=== PATIENT | female | born 1995 | race African-American/Black ===

== ENCOUNTER 2020-06-14 03:12 | Emergency (ER) | payer OTHER ==
[~2020-06-14] VITALS: Ht 160 cm; Wt 72.7 kg
[2020-06-14 03:19] VITALS: BP 126/73
[2020-06-14 03:41] LABS: BILIRUBIN,URINE NEGATIVE (NEG); CLARITY,URINE CLEAR; COLOR,URINE YELLOW; NITRITE,URINE NEGATIVE (NEG); PH,URINE 6.5 (<5.0-8.0); PROTEIN,URINE 100 mg/dL (NEG-TRACE)
[2020-06-14 04:04] LABS: BACTERIA,URINE FEW /HPF (0-FEW)
[2020-06-14] MEDS ORDERED: PHEN100T82 PO (04:14)
--- NOTE | 2020-06-14 04:23 | PHYS DOC ---
Past Medical History Past Medical History: No Pertinent History Past Surgical History: No Surgical History Smoking Status: Current Every Day Smoker Alcohol Use: Occasionally Adult General Chief Complaint Chief Complaint: PAIN ON URINATION HPI HPI Patient is a 24 year old female complaining of new onset of genitourinary discomfort. Patient states that approximate 5 days ago she was diagnosed with chlamydia after having unprotected intercourse with a new partner. Patient states that she was given a dose of doxycycline was given a course of it but did not finish that. Patient states that she has been having ongoing sensation of dysuria and frequent urination. Denies any recent fever, chills, nausea, vomit ing, dizziness or lightheadedness. Review of Systems Review of Systems Constitutional: Denies fever or chills [] Eyes: Denies change in visual acuity, redness, or eye pain [] HENT: Denies nasal congestion or sore throat [] Respiratory: Denies cough or shortness of breath [] Cardiovascular: No additional information not addressed in HPI [] GI: Denies abdominal pain, nausea, vomiting, bloody stools or diarrhea [] : Denies dysuria or hematuria [] Musculoskeletal: Denies back pain or joint pain [] Integument: Denies rash or skin lesions [] Neurologic: Denies headache, focal weakness or sensory changes [] Endocrine: Denies polyuria or polydipsia [] All other systems were reviewed and found to be within normal limits, except as documented in this note. Allergies Allergies Allergies Coded Allergies Type Severity Reaction Last Updated Verified No Known Drug Allergies 06/14/20 No Physical Exam Physical Exam Constitutional: Well developed, well nourished, no acute distress, non-toxic appearance. [] HENT: Normocephalic, atraumatic, bilateral external ears normal, oropharynx moist, no oral exudates, nose normal. [] Eyes: PERRLA, EOMI, conjunctiva normal, no discharge. [] Neck: Normal range of motion, no tenderness, supple, no stridor. [] Cardiovascular:Heart rate regular rhythm, no murmur [] Lungs & Thorax: Bilateral breath sounds clear to auscultation [] Abdomen: Bowel sounds normal, soft, no tenderness, no masses, no pulsatile masses. [] Skin: Warm, dry, no erythema, no rash. [] Back: No tenderness, no CVA tenderness. [] Extremities: No tenderness, no cyanosis, no clubbing, ROM intact, no edema. [] Neurologic: Alert and oriented X 3, normal motor function, normal sensory func tion, no focal deficits noted. [] Psychologic: Affect normal, judgement normal, mood normal. [] Current Patient Data Vital Signs Vital Signs Date Time Temp Pulse Resp B/P (MAP) Pulse Ox O2 Delivery O2 Flow Rate FiO2 06/14/20 03:19 97.5 63 18 126/73 (90) 99 Room Air 97.5 Lab Values Laboratory Tests Test 06/14/20 03:32 Urine Collection Type Unknown Urine Color Yellow Urine Clarity Clear Urine pH 6.5 (<5.0-8.0) Urine Specific Grant >=1.030 (1.000-1.030) Urine Protein 100 mg/dL (NEG-TRACE) Urine Glucose (UA) Negative mg/dL (NEG) Urine Ketones (Stick) Negative mg/dL (NEG) Urine Blood Negative (NEG) Urine Nitrite Negative (NEG) Urine Bilirubin Negative (NEG) Urine Urobilinogen Dipstick 1.0 mg/dL (0.2 mg/dL) Urine Leukocyte Esterase Negative (NEG) Urine RBC 6-10 /HPF (0-2) Urine WBC 5-10 /HPF (0-4) Urine Squamous Epithelial Cells Many /LPF Urine Bacteria Few /HPF (0-FEW) Urine Mucus Mod /LPF EKG EKG [] Radiology/Procedures Radiology/Procedures [] Course & Med Decision Making Course & Med Decision Making Pertinent Labs and Imaging studies reviewed. (See chart for details) 24-year-old female presenting with vaginal discomfort and dysuria likely secondary to mild cervicitis and possible urinary tract infection. Urinalysis was obtained she is on demonstrating strong evidence of pain. I counseled patient to finish her course of doxycycline prescribed Pyridium to help with her symptoms Dragon Disclaimer Dragon Disclaimer This electronic medical record was generated, in whole or in part, using a voice recognition dictation system. Departure Departure Impression: Primary Impression: UTI (urinary tract infection) Disposition: 01 DC HOME SELF CARE/HOMELESS Condition: GOOD Referrals: NO PCP (PCP) Patient Instructions: Urinary Tract Infection Additional Instructions: EMERGENCY DEPARTMENT GENERAL DISCHARGE INSTRUCTIONS Thank you for coming to [facility] Emergency Department (ED) today and trusting us with you care. We trust that you had a positive experience in our Emergency Department. If you wish to speak to the department management, you may call the Director at [phone]. YOUR FOLLOW UP INSTRUCTIONS ARE FOLLOWS: 1. Do you have a private Doctor? If you do not have a private doctor, please ask for a resource list of physicians or clinics that may be able to assist you with follow up care. 2. The Emergency Physicain has interpreted your x-rays. The X-Ray specialist will also review them. If there is a change in the findings, you will be notified in 48 hours when at all possible. 3. A lab test or culture has been done, your results will be reviewed and you will be notified if you need a change in treatment. ADDITIONAL INSTRUCTIONS AND INFORMATION: 1. Your care today has been supervised by a physician who is specially trained in emergency care. Many problems require more than one evaluation for a complete diagnosis and treatment. We recommend that you schedule your follow up appointment as recommended to ensure complete treatment of you illness or injury. If you are unable to obtain follow up care and continue to have a problem, or if your condition worsens, we recommend that you return to the ED. 2. We are not able to safely determine your condition over the phone nor are we able to give sound medical advice over the phone. For these safety reasons, if you call for medical advice we will ask you to come to the ED for further evaluation. 3. If you have any questions regarding these discharge instructions please call the ED at [phone]. SAFETY INFORMATION: In the interest of safety, wellness, and injury prevention; we encourage you to wear your sealbelt, if you smoke; quite smoking, and we encourage family to use a pro tective helmet for bicycling and other sporting events that present an increased risk for head injury. IF YOUR SYMPTOMS WORSEN OR NEW SYMPTOMS DEVELOP, OR YOU HAVE CONCERNS ABOUT YOUR CONDITION; OR IF YOUR CONDITION WORSENS WHILE YOU ARE WAITING FOR YOUR FOLLOW UP APPOINTMENT; EITHER CONTACT YOUR PRIMARY CARE DOCTOR, THE PHYSICIAN WHOSE NAME AND NUMBER YOU WERE GIVEN, OR RETURN TO THE ED IMMEDIATELY. Scripts Phenazopyridine Hcl (PYRIDIUM) 100 Mg Tablet 1 TAB PO TID for urinary discomfort for 2 Days, #6 TAB 0 Refills Prov: VIRGIE KRUSE MD 06/14/20 VIRGIE KRUSE MD Jun 14, 2020 04:23
== END 2020-06-14 04:43 | disposition home or self-care (01) ==
LOC: ER 03:12
DX: N39.0 Urinary tract infection, site not specified (principal)
CPT/HCPCS: 81001; 99283

== ENCOUNTER 2020-06-29 16:47 | Emergency (ER) | payer OTHER ==
[~2020-06-29] VITALS: Ht 160 cm; Wt 73.0 kg
[~2020-06-29 16:47] MED LIST: PHEN100T82 PO
[2020-06-29 17:30] VITALS: BP 110/50
--- NOTE | 2020-06-29 17:57 | PHYS DOC ---
Past Medical History Past Medical History: No Pertinent History Past Surgical History: No Surgical History Smoking Status: Current Every Day Smoker Alcohol Use: Occasionally General Adult EDM: Chief Complaint: SEXUALLY TRANSMITTED DISEASE HPI: HPI: Patient is a 24 year old female who presents with has sex with a partner that was exposed to chlamydia and tested positive for chlamydia. She states that she has no vaginal discharge but there is a slight smell. She is a past history of a smoker. Patient denies vaginal itching, vaginal discharge, abdominal pain, nausea, vomiting, diarrhea, fever, back pain, urinary symptoms, chest pain, shortness of breath. Patient denies any pain at this time. Review of Systems: Review of Systems: Constitutional: Denies fever or chills. [] Eyes: Denies change in visual acuity. [] HENT: Denies nasal congestion or sore throat. [] Respiratory: Denies cough or shortness of breath. [] Cardiovascular: Denies chest pain or edema. [] GI: Denies abdominal pain, nausea, vomiting, bloody stools or diarrhea. [] : Denies dysuria. + Exposure to chlamydia, + odorous vaginal area [] Musculoskeletal: Denies back pain or joint pain. [] Integument: Denies rash. [] Neurologic: Denies headache, focal weakness or sensory changes. [] Endocrine: Denies polyuria or polydipsia. [] Lymphatic: Denies swollen glands. [] Psychiatric: Denies depression or anxiety. [] Heart Score: Risk Factors: Risk Factors: DM, Current or recent (<one month) smoker, HTN, HLP, family history of CAD, obesity. Risk Scores: Score 0 - 3: 2.5% MACE over next 6 weeks - Discharge Home Score 4 - 6: 20.3% MACE over next 6 weeks - Admit for Clinical Observation Score 7 - 10: 72.7% MACE over next 6 weeks - Early Invasive Strategies Allergies: Allergies: Allergies Coded Allergies Type Severity Reaction Last Updated Verified No Known Drug Allergies 06/14/20 No Physical Exam: PE: Constitutional: Well developed, well nourished, no acute distress, non-toxic appearance. [] HENT: Normocephalic, atraumatic, bilateral external ears normal, oropharynx moist, no oral exudates, nose normal. [] Eyes: PERRLA, EOMI, conjunctiva normal, no discharge. [] Neck: Normal range of motion, no tenderness, supple, no stridor. [] Cardiovascular:Heart rate regular rhythm, no murmur [] Lungs & Thorax: Bilateral breath sounds clear to auscultation [] Abdomen: Bowel sounds normal, soft, no tenderness, no masses, no pulsatile masses. [] Skin: Warm, dry, no erythema, no rash. [] Back: No tenderness, no CVA tenderness. [] Extremities: No tenderness, no cyanosis, no clubbing, ROM intact, no edema. [] Neurologic: Alert and oriented X 3, normal motor function, normal sensory function, no focal deficits noted. [] Psychologic: Affect normal, judgement normal, mood normal. Normal physical exam [] EKG: EKG: [] Radiology/Procedures: Radiology/Procedures: [] Course & Med Decision Making: Course & Med Decision Making Pertinent Labs and Imaging studies reviewed. (See chart for details) See HPI. Alert and oriented x4. Ambulatory with steady gait. Abdomen is soft and nontender. Skin pink warm and dry. Afebrile. No CVA tenderness. Patient is treated with Rocephin and azithromycin. Pelvic Exam: Electronic Health Records Specialist present Abdomen: Nontender External Genitalia: Normal Skin Speculum: Normal vaginal mucosa, normal cervical discharge Bimanual: No adnexal masses or tenderness, No CMT [] Dragon Disclaimer: Jennifer Disclaimer: This electronic medical record was generated, in whole or in part, using a voice recognition dictation system. Departure Departure Impression: Primary Impression: Exposure to sexually transmitted disease (STD) Additional Impression: Bacterial vaginosis Disposition: 01 DC HOME SELF CARE/HOMELESS Condition: STABLE Referrals: NO PCP (PCP) Patient Instructions: Bacterial Vaginosis, Sexually Transmitted Disease Additional Instructions: Follow-up with [facility] if needed. Drink plenty of fluids. Take medication with food. Do not drink alcohol while you are on this medication as it will make you vomit. Tell all sexual partners that you have been treated for sexually transmitted disease today. Scripts Metronidazole (METRONIDAZOLE) 500 Mg Tablet 1 TAB PO BID for 7 Days, #14 TAB 0 Refills Prov: BRANT WOODY APRN 06/29/20 BRANT WOODY APRN Jun 29, 2020 17:57
[2020-06-29] MEDS ORDERED: AZITHROMYCIN 250 MG TABLET. PO ONE (18:00)
[2020-06-29] MEDS ORDERED: cefTRIAXone IM 500 MG VIAL. IM ONE (18:00)
[2020-06-29 18:03] LABS: BILIRUBIN,URINE NEGATIVE (NEG); CLARITY,URINE CLEAR; COLOR,URINE YELLOW; NITRITE,URINE NEGATIVE (NEG); PH,URINE 5.5 (<5.0-8.0); PROTEIN,URINE NEGATIVE (NEG-TRACE)
[2020-06-29] MEDS ORDERED: METR-34 PO (18:08)
[2020-06-29 18:17] LABS: RBC,URINE RARE /HPF (0-2)
[2020-06-29 18:18] LABS: BACTERIA,URINE FEW /HPF (0-FEW)
[2020-07-01 19:09] LABS: GC PROBE Negative (Negative)
== END 2020-06-29 18:30 | disposition home or self-care (01) ==
LOC: ER 16:47
DX: N76.0 Acute vaginitis (principal); B96.89 Other specified bacterial agents as the cause of diseases classified elsewhere; F17.200 Nicotine dependence, unspecified, uncomplicated
CPT/HCPCS: 81001; 81025; 87491; 87591; 96372; 99284; J0696; Q0111